=== PATIENT | female | born 1990 | race Caucasian/White ===

== ENCOUNTER 2025-10-03 08:43 | Emergency (ER) | payer MEDICAID, SELFPAY ==
[2025-10-03 09:00] VITALS: BP 115/78; PULSE 74; RESP 18; TEMP 36.6; O2SAT 99; BMI 26.9
--- NOTE | 2025-10-03 09:05 | XR_ITS ---
Examination: Knee, right, 3 views Technique: Knee AP, lateral, oblique 3 views Date and time of exam: October 03, 2025, 0957 hours INDICATIONS: Knee pain after injury today FINDINGS: No fracture or dislocation Mild narrowing medial lateral joint spaces IMPRESSION: No fracture or dislocation Minimal knee effusion
--- NOTE | 2025-10-03 09:07 | EDNOTE_ITS ---
<Statement entered by Sol Leyva MD - 10/03/25 17:46> As co-signing physician, I was present and available for consult prn. I concur with the plan and care as documented by the midlevel provider. Lower Extremity Injury RME/HPI General Chief Complaint: Extremity Injury, Lower Stated Complaint: right knee pain squatting down this am Time Seen by Provider: 10/03/25 08:53 Source: patient Arrival date/time: 10/03/25 08:43 35-year-old female with no known medical history presents to the emergency room with a chief complaint of tenderness to her right knee after squatting and hearing a pop this morning Mode of arrival: ambulatory Limitations: no limitations Related Data Home Medications ?Medication ?Instructions ?Recorded ?Confirmed albuterol sulfate 90 mcg/actuation 2 puff inhalation Q ID PRN Wheezing 12/23/20 12/23/20 aerosol inhaler (ProAir HFA) Previous Rx's ?Medication ?Instructions ?Recorded hydrocodone 5 mg-acetaminophen 325 1 tab PO BID PRN pa in #10 tabs 12/23/20 mg tablet ondansetron HCl 4 mg tablet 4 mg PO Q8H PRN nausea and 12/23/20 (Zofran) vomiting #14 tabs fluconazole 150 mg tablet 150 mg PO Q3D 2 doses #2 tab s 04/22/24 amoxicillin 875 mg-potassium 1 tab PO BID #14 tabs clavulanate 125 mg tablet Allergies Allergy/AdvReac Type Severity Reaction Status Date / Time coconut Allergy Severe Swelling Verified 10/03/25 08:46 of Lip/Tongue/Throat Review of Systems Review of Systems Systems Reviewed: All systems reviewed, normal except as documented Constitutional Constitutional: Reports system reviewed and no additional complaints, except as documented, Denies fatigue, Denies fever(s), Denies headache(s) and Denies weakness Eyes Eyes: Reports system reviewed and no additional complaints, except as documented, Denies blurry vision and Denies change in vision ENT Ears, Nose, Mouth, and Throat: Reports system reviewed and no additional complaints, except as documented, Denies otalgia, Denies headache(s), Denies nasal congestion, Denies throat swelling and Denies vertigo Cardiovascular Cardiovascular: Reports system reviewed and no additional complaints, except as documented, Denies chest pain, Denies dyspnea and Denies dyspnea on exertion Respiratory Respiratory: Reports system reviewed and no additional complaints, except as documented, Denies chest congestion, Denies cough, Denies dyspnea, Denies dyspnea on exertion and Denies wheezing Gastrointestinal Gastrointestinal: Reports system reviewed and no additional complaints, except as documented, Denies abdominal pain, Denies cramping, Denies nausea and Denies vomiting Genitourinary Genitourinary: Reports system reviewed and no additional complaints, except as documented Musculoskeletal Musculoskeletal: Reports system reviewed and no additional complaints, except as documented, Reports abnormal gait, Reports arthralgias, Denies back pain, Reports joint swelling and Reports limited range of motion Integumentary/Breasts Skin/Breast: Reports system reviewed and no additional complaints, except as documented and Denies wounds Neurologic Neurologic: Reports system reviewed and no additional complaints, except as documented, Reports abnormal gait, Denies confusion, Denies headache(s), Denies lack of coordination, Denies vertigo and Denies weakness Psychiatric Psychiatric: Reports system reviewed and no additional complaints, except as documented, Denies anxiety, Denies confusion, Denies depression, Denies paranoia, Denies suicidal ideation and Denies tactile hallucinations Endocrine Endocrine: Reports system reviewed and no additional complaints, except as documented and Denies fatigue Hematologic/Lymphatic Hematologic/Lymphatic: Reports system reviewed and no additional complaints, except as documented and Denies lymphadenopathy Allergic/Immunologic Allergic/Immunologic: Reports system reviewed and no additional complaints, except as documented, Denies throat swelling, Denies urticaria and Denies wheezing ED Exam General Limitations: Present no limitations General appearance: Present alert and in no apparent distress Head Head exam: Present atraumatic Eye Eye exam: Present normal appearance, PERRL and EOMI ENT ENT exam: Present normal exam, normal oropharynx and mucous membranes moist Neck Neck exam: Present normal inspection, full ROM and trachea midline Chest Chest inspection: Present normal inspection and symmetric chest wall rise Respiratory Respiratory exam: Present normal lung sounds bilaterally Cardiovascular Cardiovascular exam: Present regular rate, normal rhythm and normal heart sounds Abdominal Exam Abdominal exam: Present soft and normal bowel sounds Extremities Exam Extremities exam: Present normal inspection and full ROM Expanded Lower Extremity Exam Hip/Pelvis exam: Present normal inspection Upper leg exam: Present normal inspection Knee exam: Present full ROM, tenderness, swelling, pain with valgus and pain with varus Lower leg exam: Present normal inspection Ankle exam: Present normal inspection Foot/toe exam: Present normal inspection Gait: observed and limited by pain Back Exam Back exam: Present normal inspection and full ROM Neurological Exam Neurological exam: Present alert, oriented X3 and CN II-XII intact Psychiatric Psychiatric exam: Present normal affect and normal mood Skin Skin exam: Present warm, dry, intact and normal color Course Quality Measures none Orders Category Date Time Status baljit wrap [Splint / Immobilizer] STAT Care 10/03/25 09:05 Completed XR knee RT 3V Stat Exams 10/03/25 09:05 Completed Ibuprofen Tab [Motrin Tab] Med 10/03/25 09:05 Discontinued 600 mg PO X1 ONE Vital Signs Vital signs: Vital Signs Temperature 97.9 F 10/03/25 09:00 Pulse Rate 74 10/03/25 09:00 Respiratory Rate 18 10/03/25 09:00 Blood Pressure 115/78 10/03/25 09:00 Pulse Oximetry (%) 99 10/03/25 09:00 Oxygen Delivery Method Room Air 10/03/25 09:00 Extremity Injury, Lower MDM Narrative MDM Narrative:: 35-year-old female with no known medical history presents to the emergency room with a chief complaint of tenderness to her right knee after squatting and hearing a pop this morning Patient is hemodynamically stable and in no apparent distress Physical examination shows tenderness to the patient's right knee. The patient is ambulating and has a normal steady gait Patient has pain with valgus and varus. X-ray of the knee was completed and was negative for any acute fracture or dislocation. An Baljit wrap was placed and the patient was given crutches. Patient was discharged and educated to follow-up with primary care provider in the next 24 to 48 hours and return to the emergency room for any evidence of worsening signs or symptoms Patient data External records reviewed:: [facility] previous records Clinical information provided by:: patient Social determinants that could affect healthcare access:: none Patient has the following chronic illnesses:: No chronic illness How is presenting disease/condition affected by chronic disease/condition?: no chronic disease Evaluation data The following diagnostics were reviewed and interpreted by me:: lab results and radiology exam(s) Lab and/or radiology exams considered but not ordered:: Labs and radiology exams considered and ordered Interpretation Summary: X-ray right knee-FINDINGS: No fracture or dislocation Mild narrowing medial lateral joint spaces IMPRESSION: No fracture or dislocation Minimal knee effusion Medications / Prescriptions Medications or Prescriptions considered but not ordered:: Medication given Medication administrations:: Medication Administration History Discontinued Medications Ibuprofen (Ibuprofen Tab 600 Mg Tablet) 600 mg PO X1 ONE Stop: 10/03/25 09:06 Last Admin: 10/03/25 09:14 Dose: 600 mg Documented By: OA Medication given Consultations Consultation(s) initiated? (list below): No Diagnosis Extremity Injury, Lower Differential Diagnosis: acute internal derangement of knee and other (Knee sprain) Most likely diagnosis given after review of the tests above:: Knee sprain Admission Indicated Admission indicated?: not indicated Admission Request Was there a request for admission?: No Disposition Plan Disposition Plan: Discharge Discharge Attestation Discharge Attestation: The patient and all family members were given an opportunity to ask questions and understood the discharge instructions. Discharge instructions specifically effects, indications for sooner follow up or return to the emergency department, and the expected course of current diagnosis. Patient condition: Stable Discharge Plan Plan Patient Disposition: HOME (Self Care) Discharge Disposition comment: Stable Prescriptions/Referrals Prescriptions/Med Rec: No Action albuterol sulfate [ProAir HFA] 90 mcg/actuation Hfa Aerosol Inhaler 2 puff INHALATION QID PRN (Reason: Wheezing) hydrocodone-acetaminophen 5-325 mg tablet 1 tab PO BID MDD 3 PRN (Reason: pain) Qty: 10 0RF ondansetron HCl [Zofran] 4 mg tablet 4 mg PO Q8H PRN (Reason: nausea and vomiting) Qty: 14 0RF fluconazole 150 mg tablet 150 mg PO Q3D 0 Days Qty: 2 0RF amoxicillin-pot clavulanate 875-125 mg tablet 1 tab PO BID Qty: 14 0RF Referrals: Ara Zamudio MD [Primary Care Provider] - In 1 week Problem List Clinical Impression: Knee sprain Patient/Caregiver Discharge Instructions Education Materials: ED BALJIT Wrap, ED Knee Sprain Additional Instructions: Please follow-up with your primary care provider in the next 24 to 48 hours X-rays of your knee were negative for any acute findings For any evidence of worsening signs or symptoms return to the emergency room immediately Print Language: Lebanese Stand Alone Forms: Katty Award Info., Work/School Release, Patient Portal Info Letter PA/SUSSY Supervising Physician PA/SUSSY Supervising Physician: Dr. Walton
[2025-10-03] MEDS: IBUPROFEN TAB 600 MG TABLET PO (09:14)
== END 2025-10-03 12:14 | disposition home or self-care (01) ==
PROVIDERS: Emergency Provider Nurse Practitioner Family; PCP Student in an Organized Health Care Education/Training Program
DX: S83.91XA Sprain of unspecified site of right knee, initial encounter (principal); X50.1XXA Overexertion from prolonged static or awkward postures, initial encounter; Y93.B9 Activity, other involving muscle strengthening exercises
CPT/HCPCS: 73562; 99283; A9270